=== PATIENT | female | born 1945 | race Caucasian/White ===

== ENCOUNTER 2017-09-27 10:00 | Inpatient (IN) ==
[2017-09-27] MEDS ORDERED: methylPREDNISolone 125 MG/2 ML VIAL IVP ONE (10:05)
[2017-09-27] MEDS ORDERED: Ipratropium/Albuterol Neb 3 ML IH ONE (10:05)
[2017-09-27] MEDS ORDERED: Azithromycin 500 MG in D5% in Water 250 ML IVPB ONE (10:05)
--- NOTE | 2017-09-27 10:07 | Emergency Department Note ---
Disposition Clinical Impression: Acute exacerbation of chronic obstructive airways disease Disposition: Admitted As Inpatient Condition: Fair SOB HPI - General Chief Complaint: ED Shortness of Breath/Dyspnea Stated Complaint: william/sick for 5 days/wheezing/NVD Time Seen by Provider: 09/27/17 10:03 Source: patient, family Mode of arrival: EMS Limitations: no limitations Nursing Notes Reviewed: Yes Vital Signs Reviewed: Yes - History of Present Illness Patient presents to the ED with the chief complaint of shortness of breath. Has been ongoing for the last 5 days but worse in the last 24 hours. Does have a history of COPD. No fever or chills. Some chest tightness but no chest pain. Has been coughing. No abdominal pain or vomiting. - Related Data Home Medications Medication Instructions Recorded Confirmed Fluticasone Propionate Nasal 2 spr NS DAILY 09/27/17 09/27/17 [Flonase] Levothyroxine [Synthroid] 100 mcg PO DAILY 09/27/17 09/27/17 Metformin HCl [Metformin HCl ER] 1,000 mg PO BID 09/27/17 09/27/17 Simvastatin [Zocor] 40 mg PO HS 09/27/17 09/27/17 Tramadol HCl [Ultram] 50 mg PO BID PRN 09/27/17 09/27/17 clonazePAM [Klonopin] 1 mg PO TID 09/27/17 09/27/17 glipiZIDE [Glucotrol] 5 mg PO DAILY 09/27/17 09/27/17 Allergies Allergy/AdvReac Type Severity Reaction Status Date / Time aspirin [ASA] Allergy Rash Verified 09/27/17 10:47 codeine Allergy Rash Verified 09/27/17 10:47 Review of Systems: As reviewed in the HPI. All other systems reviewed are negative or normal. Past Medical History - Past Medical History Attestation: Yes The following information was validated with the patient. Source: patient, old records reviewed, obtained from family Physical Exam - General Limitations: no limitations General appearance: alert, in distress - Head Head exam: atraumatic, normocephalic, normal inspection - Respiratory Respiratory exam: Present: respiratory distress, wheezes (Throughout), accessory muscle use. Absent: normal lung sounds bilaterally - Cardiovascular Cardiovascular exam: Present: regular rate, normal rhythm, normal heart sounds - Abdominal Exam Abdominal exam: Present: soft, Non-Tender. Absent: tenderness, distention, guarding, rebound, rigidity - Extremities Exam Extremities exam: Present: normal inspection, full ROM, normal capillary refill. Absent: tenderness, pedal edema - Neurological Exam Neurological exam: Present: alert, oriented X3 - Skin Skin exam: Present: warm, dry, intact, normal color Course Course Narrative: Patient presenting with respiratory distress, wheezing. Labs, meds and steroids ordered. No BiPAP at this time. We will reevaluate - Reevaluation(s) Reevaluation #1: Patient work of breathing has decreased after nebs and she is moving more air, but is still wheezing. Still do not think that she needs BiPAP at this time. Troponin is negative. She was quite hypoxic when she got here, so we will add on a d-dimer to rule out PE before admitting hospitalist service Reevaluation #2: Dimer is negative. Will admit. Vital Signs Temperature 98.3 F 09/27/17 10:04 Pulse Rate 74 09/27/17 10:04 Respiratory Rate 26 09/27/17 10:04 Blood Pressure 118/68 09/27/17 10:04 O2 Sat by Pulse Oximetry 81 09/27/17 10:04 Temperature 98.3 F 09/27/17 10:04 Pulse Rate 74 09/27/17 10:04 Respiratory Rate 20 09/27/17 10:15 Blood Pressure 118/68 09/27/17 10:04 O2 Sat by Pulse Oximetry 98 09/27/17 10:15 Oxygen Delivery Oxygen Delivery Room Air Shortness of Breath/Dyspnea - Lab Data Result diagrams: 09/27/17 10:05 09/27/17 10:05 Lab Results 09/27/17 09/27/17 09/27/17 Range/Units 10:05 10:05 10:05 WBC 3.6 L (4.3-11.1) K/mcL RBC 4.07 (3.82-4.97) M/mcL Hgb 12.0 (11.5-15.4) g/dL Hct 37.9 (35.3-44.9) % MCV 93.1 (83.0-100.0) fL MCH 29.5 (28.0-33.3) pg MCHC 31.7 (31.6-35.5) g/dL RDW 14.8 H (11.5-14.5) % Plt Count 103 L (140-400) K/mcL MPV 10.3 (9.4-12.4) fL Immature Gran % 1.9 (0-4) % Seg Neutrophils % 49.1 % Lymphocytes % 37.5 % Monocytes % 10.6 % Eosinophils % 0.6 % Basophils % 0.3 % Neutrophils # 1.8 (1.6-8.9) K/mcL Lymphocytes # 1.4 (0.6-4.6) K/mcL Monocytes # 0.4 (0.0-1.3) K/mcL Eosinophils # 0.0 (0.0-0.6) K/mcL Basophils # 0.0 (0.0-0.2) K/mcL Nucleated RBCs/100 WBC 0.8 H (0) /100 WBC Immature Plt Fraction 2.8 (1.1-6.1) % D-Dimer (0-500) ng/mLFEU Sodium 135 L (136-145) mEq/L Potassium 4.1 (3.5-5.1) mEq/L Chloride 98 (98-107) mEq/L Carbon Dioxide 29 (23-29) mEq/L BUN 19 (8-23) mg/dL Creatinine 1.13 (0.60-1.20) mg/dL Est GFR ( Amer) 57 L (> 60) Est GFR (Non-Af Amer) 47 L (> 60) BUN/Creatinine Ratio 17 (6-26) Glucose 142 H (70-105) mg/dL Calculated Osmolality 285 (280-300) Lactic Acid (0.5-2.2) mmol/L Calcium 8.7 (8.6-10.3) mg/dL Troponin I < 0.03 (< 0.04) ng/mL B-Natriuretic Peptide 100 H (Less than 100) pg/mL Urine Color (Yellow) Urine Clarity (Clear) Urine pH (5.0-8.0) pH Units Ur Specific [place] (1.010-1.025) Urine Protein (Neg-Trace) mg/dL Urine Glucose (UA) (Normal) mg/dL Urine Ketones (Negative) mg/dL Urine Blood (Negative) Urine Nitrite (Negative) Urine Bilirubin (Negative) Urine Urobilinogen (Normal) mg/dL Ur Leukocyte Esterase (Negative) Urine Microscopic RBC (0-3) per hpf Urine Microscopic WBC (0-3) per hpf Ur Squamous Epith Cells (None-Few) per lpf Urine Bacteria (None-Few) per hpf Granular Casts (None Seen) per lpf Ur Culture Indicated? (NO) 09/27/17 09/27/17 09/27/17 Range/Units 10:28 11:33 11:42 WBC (4.3-11.1) K/mcL RBC (3.82-4.97) M/mcL Hgb (11.5-15.4) g/dL Hct (35.3-44.9) % MCV (83.0-100.0) fL MCH (28.0-33.3) pg MCHC (31.6-35.5) g/dL RDW (11.5-14.5) % Plt Count (140-400) K/mcL MPV (9.4-12.4) fL Immature Gran % (0-4) % Seg Neutrophils % % Lymphocytes % % Monocytes % % Eosinophils % % Basophils % % Neutrophils # (1.6-8.9) K/mcL Lymphocytes # (0.6-4.6) K/mcL Monocytes # (0.0-1.3) K/mcL Eosinophils # (0.0-0.6) K/mcL Basophils # (0.0-0.2) K/mcL Nucleated RBCs/100 WBC (0) /100 WBC Immature Plt Fraction (1.1-6.1) % D-Dimer 421 (0-500) ng/mLFEU Sodium (136-145) mEq/L Potassium (3.5-5.1) mEq/L Chloride (98-107) mEq/L Carbon Dioxide (23-29) mEq/L BUN (8-23) mg/dL Creatinine (0.60-1.20) mg/dL Est GFR ( Amer) (> 60) Est GFR (Non-Af Amer) (> 60) BUN/Creatinine Ratio (6-26) Glucose (70-105) mg/dL Calculated Osmolality (280-300) Lactic Acid 0.8 (0.5-2.2) mmol/L Calcium (8.6-10.3) mg/dL Troponin I (< 0.04) ng/mL B-Natriuretic Peptide (Less than 100) pg/mL Urine Color Dark Yellow (Yellow) Urine Clarity Clear (Clear) Urine pH 5.5 (5.0-8.0) pH Units Ur Specific [place] 1.028 H (1.010-1.025) Urine Protein 100 H (Neg-Trace) mg/dL Urine Glucose (UA) Normal (Normal) mg/dL Urine Ketones Negative (Negative) mg/dL Urine Blood Negative (Negative) Urine Nitrite Negative (Negative) Urine Bilirubin Small H (Negative) Urine Urobilinogen Normal (Normal) mg/dL Ur Leukocyte Esterase Negative (Negative) Urine Microscopic RBC 0-3 (0-3) per hpf Urine Microscopic WBC 3-5 H (0-3) per hpf Ur Squamous Epith Cells Many H (None-Few) per lpf Urine Bacteria Few (None-Few) per hpf Granular Casts Few H (None Seen) per lpf Ur Culture Indicated? NO (NO) Critical Care Time Critical Care Time: Yes Total Critical Care Time: 30 Attestation: I personally spent ____30__ minutes devoted to the care of this critically ill patient. This time excludes the time for billable procedures.
[2017-09-27 10:49] LABS: Basophils % 0.3 %; Mean Corpuscular Hemoglobin 29.5 pg (28.0-33.3); Monocytes % 10.6 %
--- NOTE | 2017-09-27 10:49 | Emergency Department Note ---
Disposition Clinical Impression: Acute exacerbation of chronic obstructive airways disease Disposition: Admitted As Inpatient Condition: Fair General Adult HPI - General Chief complaint: ED Shortness of Breath/Dyspnea Stated complaint: william/sick for 5 days/wheezing/NVD Time Seen by Provider: 09/27/17 10:03 Nursing Notes Reviewed: Yes Vital Signs Reviewed: Yes - Related Data Home Medications Medication Instructions Recorded Confirmed Fluticasone Propionate Nasal 2 spr NS DAILY 09/27/17 09/27/17 [Flonase] Levothyroxine [Synthroid] 100 mcg PO DAILY 09/27/17 09/27/17 Metformin HCl [Metformin HCl ER] 1,000 mg PO BID 09/27/17 09/27/17 Simvastatin [Zocor] 40 mg PO HS 09/27/17 09/27/17 Tramadol HCl [Ultram] 50 mg PO BID PRN 09/27/17 09/27/17 clonazePAM [Klonopin] 1 mg PO TID 09/27/17 09/27/17 glipiZIDE [Glucotrol] 5 mg PO DAILY 09/27/17 09/27/17 Allergies Allergy/AdvReac Type Severity Reaction Status Date / Time aspirin [ASA] Allergy Rash Verified 09/27/17 10:47 codeine Allergy Rash Verified 09/27/17 10:47 Course Vital Signs Temperature 98.3 F 09/27/17 10:04 Pulse Rate 74 09/27/17 10:04 Respiratory Rate 26 09/27/17 10:04 Blood Pressure 118/68 09/27/17 10:04 O2 Sat by Pulse Oximetry 81 09/27/17 10:04 Temperature 98.3 F 09/27/17 10:04 Pulse Rate 74 09/27/17 12:41 Respiratory Rate 18 09/27/17 12:41 Blood Pressure 124/57 09/27/17 12:41 O2 Sat by Pulse Oximetry 97 09/27/17 12:41 Oxygen Delivery Oxygen Delivery Nasal Cannula Medical Decision Making - MDM Narrative Medical decision making narrative: This documentation is done with the assistance of Dragon dictation. Despite efforts made to ensure accuracy, there may be inaccuracies in floor scraper or spelling and typographical errors. Patient presents today with cough and wheezing history of COPD. Possible pneumonia. We will do a workup, nebulize treatments. Chest x-ray EKG most likely will be admitted. She and family are in agreement with plan. Chest X-Ray 09/27/17 10:05 IMPRESSION: No acute cardiopulmonary process. D/ / Aden Dash MD / Aden Dash MD Interpreting Provider: Aden Dash MD 1130 hrs. with her COPD. We will start her on antibiotics and admit her. She still has some wheezing but is doing better. Patient's critical care time exclusive any separately billable procedures is 30 minutes. - Lab Data Result diagrams: 09/27/17 10:05 09/27/17 10:05 Lab Results 09/27/17 09/27/17 09/27/17 Range/Units 10:05 10:05 10:05 WBC 3.6 L (4.3-11.1) K/mcL RBC 4.07 (3.82-4.97) M/mcL Hgb 12.0 (11.5-15.4) g/dL Hct 37.9 (35.3-44.9) % MCV 93.1 (83.0-100.0) fL MCH 29.5 (28.0-33.3) pg MCHC 31.7 (31.6-35.5) g/dL RDW 14.8 H (11.5-14.5) % Plt Count 103 L (140-400) K/mcL MPV 10.3 (9.4-12.4) fL Immature Gran % 1.9 (0-4) % Seg Neutrophils % 49.1 % Lymphocytes % 37.5 % Monocytes % 10.6 % Eosinophils % 0.6 % Basophils % 0.3 % Neutrophils # 1.8 (1.6-8.9) K/mcL Lymphocytes # 1.4 (0.6-4.6) K/mcL Monocytes # 0.4 (0.0-1.3) K/mcL Eosinophils # 0.0 (0.0-0.6) K/mcL Basophils # 0.0 (0.0-0.2) K/mcL Nucleated RBCs/100 WBC 0.8 H (0) /100 WBC Immature Plt Fraction 2.8 (1.1-6.1) % D-Dimer (0-500) ng/mLFEU Sodium 135 L (136-145) mEq/L Potassium 4.1 (3.5-5.1) mEq/L Chloride 98 (98-107) mEq/L Carbon Dioxide 29 (23-29) mEq/L BUN 19 (8-23) mg/dL Creatinine 1.13 (0.60-1.20) mg/dL Est GFR ( Amer) 57 L (> 60) Est GFR (Non-Af Amer) 47 L (> 60) BUN/Creatinine Ratio 17 (6-26) Glucose 142 H (70-105) mg/dL Calculated Osmolality 285 (280-300) Lactic Acid (0.5-2.2) mmol/L Calcium 8.7 (8.6-10.3) mg/dL Troponin I < 0.03 (< 0.04) ng/mL B-Natriuretic Peptide 100 H (Less than 100) pg/mL Urine Color (Yellow) Urine Clarity (Clear) Urine pH (5.0-8.0) pH Units Ur Specific [place] (1.010-1.025) Urine Protein (Neg-Trace) mg/dL Urine Glucose (UA) (Normal) mg/dL Urine Ketones (Negative) mg/dL Urine Blood (Negative) Urine Nitrite (Negative) Urine Bilirubin (Negative) Urine Urobilinogen (Normal) mg/dL Ur Leukocyte Esterase (Negative) Urine Microscopic RBC (0-3) per hpf Urine Microscopic WBC (0-3) per hpf Ur Squamous Epith Cells (None-Few) per lpf Urine Bacteria (None-Few) per hpf Granular Casts (None Seen) per lpf Ur Culture Indicated? (NO) 09/27/17 09/27/17 09/27/17 Range/Units 10:28 11:33 11:42 WBC (4.3-11.1) K/mcL RBC (3.82-4.97) M/mcL Hgb (11.5-15.4) g/dL Hct (35.3-44.9) % MCV (83.0-100.0) fL MCH (28.0-33.3) pg MCHC (31.6-35.5) g/dL RDW (11.5-14.5) % Plt Count (140-400) K/mcL MPV (9.4-12.4) fL Immature Gran % (0-4) % Seg Neutrophils % % Lymphocytes % % Monocytes % % Eosinophils % % Basophils % % Neutrophils # (1.6-8.9) K/mcL Lymphocytes # (0.6-4.6) K/mcL Monocytes # (0.0-1.3) K/mcL Eosinophils # (0.0-0.6) K/mcL Basophils # (0.0-0.2) K/mcL Nucleated RBCs/100 WBC (0) /100 WBC Immature Plt Fraction (1.1-6.1) % D-Dimer 421 (0-500) ng/mLFEU Sodium (136-145) mEq/L Potassium (3.5-5.1) mEq/L Chloride (98-107) mEq/L Carbon Dioxide (23-29) mEq/L BUN (8-23) mg/dL Creatinine (0.60-1.20) mg/dL Est GFR ( Amer) (> 60) Est GFR (Non-Af Amer) (> 60) BUN/Creatinine Ratio (6-26) Glucose (70-105) mg/dL Calculated Osmolality (280-300) Lactic Acid 0.8 (0.5-2.2) mmol/L Calcium (8.6-10.3) mg/dL Troponin I (< 0.04) ng/mL B-Natriuretic Peptide (Less than 100) pg/mL Urine Color Dark Yellow (Yellow) Urine Clarity Clear (Clear) Urine pH 5.5 (5.0-8.0) pH Units Ur Specific [place] 1.028 H (1.010-1.025) Urine Protein 100 H (Neg-Trace) mg/dL Urine Glucose (UA) Normal (Normal) mg/dL Urine Ketones Negative (Negative) mg/dL Urine Blood Negative (Negative) Urine Nitrite Negative (Negative) Urine Bilirubin Small H (Negative) Urine Urobilinogen Normal (Normal) mg/dL Ur Leukocyte Esterase Negative (Negative) Urine Microscopic RBC 0-3 (0-3) per hpf Urine Microscopic WBC 3-5 H (0-3) per hpf Ur Squamous Epith Cells Many H (None-Few) per lpf Urine Bacteria Few (None-Few) per hpf Granular Casts Few H (None Seen) per lpf Ur Culture Indicated? NO (NO) Critical Care Time Critical Care Time: Yes Total Critical Care Time: 30 Attestation: Excluding any separately billable procedures Attestation Statement - Attestation Attestation: I examined this patient and my medical decision-making was reviewed with the Resident Physician. I agree with the documented findings, disposition and treatment plan as described except to the extent set forth below. Patient was seen on arrival by Dr. High and myself, I agree with his evaluation management plan supervisor telephone clerks care the patient's stay.
[2017-09-27 10:50] LABS: Eosinophils % 0.6 %; Hematocrit 37.9 % (35.3-44.9); Immature Granulocytes % 1.9 % (0-4); Immature Platelets 2.8 % (1.1-6.1); Lymphocytes # 1.4 K/mcL (0.6-4.6); Lymphocytes % 37.5 %; Mean Corpuscular HGB Conc 31.7 g/dL (31.6-35.5); Mean Corpuscular Volume 93.1 fL (83.0-100.0); Mean Platelet Volume 10.3 fL (9.4-12.4); Monocytes # 0.4 K/mcL (0.0-1.3); Neutrophils # 1.8 K/mcL (1.6-8.9); Nucleated Red Blood Cells 0.8 /100 WBC (0); Platelet Count 103 K/mcL (140-400); Red Blood Count 4.07 M/mcL (3.82-4.97); Red Cell Distribution Width 14.8 % (11.5-14.5); Segmented Neutrophils % 49.1 %
[2017-09-27 11:01] LABS: BUN/Creatinine Ratio 17 (6-26); Blood Urea Nitrogen 19 mg/dL (8-23); Calcium 8.7 mg/dL (8.6-10.3); Carbon Dioxide 29 mEq/L (23-29); Chloride 98 mEq/L (98-107); Glucose 142 mg/dL (70-105); Osmolality,Calculated 285 (280-300); Potassium 4.1 mEq/L (3.5-5.1); Sodium 135 mEq/L (136-145); eGFR For African Americans 57 (> 60); eGFR For Non-African Americans 47 (> 60)
[2017-09-27 11:02] LABS: Troponin I < 0.03 ng/mL (< 0.04)
[2017-09-27 11:51] LABS: Bilirubin,Urine Small (Negative); Blood,Urine Negative (Negative); Color,Urine Dark Yellow (Yellow); Glucose,Urine (UA) Normal (Normal); Ketones,Urine Negative (Negative); Leukocyte Esterase,Urine Negative (Negative); Nitrite,Urine Negative (Negative); PH,Urine 5.5 pH Units (5.0-8.0); Protein,Urine 100 mg/dL (Neg-Trace); Specific Gravity,Urine 1.028 (1.010-1.025); Urobilinogen,Urine Normal (Normal)
[2017-09-27 11:54] LABS: Squamous Epithelial Cell,Urine Many per lpf (None-Few)
[2017-09-27 12:02] LABS: Clarity,Urine Clear (Clear)
[2017-09-27 12:19] LABS: Granular Casts,Urine Few per lpf (None Seen)
[2017-09-27 12:20] LABS: Bacteria,Urine Few per hpf (None-Few); RBC,Urine 0-3 per hpf (0-3)
--- NOTE | 2017-09-27 14:02 | Internal Med History&Physical ---
Date of Encounter: 09/27/17 Time of Encounter: 14:48 Internal Medicine - H&P: HPI Admitted From: Home Plans for Post Hospital Care: Home History of present illness: Ms. 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 Patient also had episode of nausea vomiting diarrhea but now slowing down significantly. In ER patient was saturating 81% with wheezing therefore oxygen supplementation by nasal cannula is started along with Solu-Medrol and azithromycin considering COPD exacerbation. Chest x-ray with no suggestive findings of pneumonia. Initial lab with low white count, low platelet raised blood glucose level and raised BNP. Patient never had history of CHF or any cardiac problem. Patient denies chest pain abdominal pain, urinary complaint, headache, dizziness. History of remote a smoker. Past Med Surg Social Fam HX - Past Medical History Medical history: COPD, diabetes, hypertension, renal disease Psychiatric history: no psych history - Social History Smoking Status: Former smoker Smokeless Tobacco Status: No Alcohol use: none Drug use: none - Family History Mother History Unknown: Yes Internal Medicine - H&P: Meds Fluticasone Propionate Nasal [Flonase] 2 spr NS DAILY 09/27/17 [History] Levothyroxine [Synthroid] 100 mcg PO DAILY 09/27/17 [History] Metformin HCl [Metformin HCl ER] 1,000 mg PO BID 09/27/17 [History] Simvastatin [Zocor] 40 mg PO HS 09/27/17 [History] Tramadol HCl [Ultram] 50 mg PO BID PRN 09/27/17 [History] clonazePAM [Klonopin] 1 mg PO TID 09/27/17 [History] glipiZIDE [Glucotrol] 5 mg PO DAILY 09/27/17 [History] 3 Allergy/AdvReac Type Severity Reaction Status Date / Time aspirin [ASA] Allergy Rash Verified 09/27/17 10:47 codeine Allergy Rash Verified 09/27/17 10:47 All Systems PM: A 10-system review of systems was performed and is negative for pertinent findings except as documented above in the HPI. - Constitutional Vitals: Temp Pulse Resp BP Pulse Ox 98.7 F 93 18 114/57 93 09/27/17 13:23 09/27/17 13:23 09/27/17 13:23 09/27/17 13:23 09/27/17 13:23 Exam: General appearance: Mild respiratory distress, oxygen by nasal cannula 3 L, get out of breath while talking but able to complete a sentence. A&O X 3 Head exam: Atraumatic Eye exam: EOMI, PERRLA ENT exam: Moist oral mucosa Neck nontender, supple Respiratory exam: Decreased breath sounds with expiratory wheezing bilaterally Cardiovascular exam: Regular rate and rhythm, no systolic murmur Abdominal exam: Soft, nontender, nondistended, positive bowel sounds Extremities exam: No calf tenderness, no pedal edema Present: Skin-no rash, warm, dry, intact Neurological exam: Alert, awake, oriented 3, CN II-XII intact, no focal deficits. No facial droop. Normal speech. Normal gait. Romberg sign negative Internal Med - H&P Results - Labs CBC & Chem 7: 09/27/17 10:05 09/27/17 10:05 - Assessment and plan (1) COPD exacerbation Current Visit: Yes Status: Acute Assessment and plan: With acute bronchitis but no pneumonia on chest x-ray. Patient has history of pneumonia in the past. Patient was also hypoxic with greenish sputum. Solu- Medrol loading dose given now will continue 40 mg IV every 6 hours along with dual antibiotic Rocephin and Zithromax, spirometry, breathing treatment and oxygen supplementation. Patient does not look septic but SIRS. (2) Hypoxia Current Visit: Yes Status: Acute Assessment and plan: Most likely due to acute event as mentioned above. ABG ordered. Oxygen supplementation. Patient may need oxygen evaluation before discharge to home. Continuous pulse ox. (3) Short of breath on exertion Current Visit: Yes Status: Acute Assessment and plan: Most likely due to COPD exacerbation but patient also had elevated BNP but does not appear volume overloaded and never had any cardiac evaluation therefore echocardiogram ordered. Lasix 20 mg 1 given with a strict I&O's. (4) Diabetes mellitus Current Visit: Yes Status: Chronic Assessment and plan: No OHA. Accu-Chek, sliding scale insulin, diabetic diet. Qualifiers: Diabetes mellitus type: type 2 Diabetes mellitus director long term care insulin use: without half-way use Diabetes mellitus complication status: without complication Qualified Code(s): E11.9 - Type 2 diabetes mellitus without complications (5) DVT prophylaxis Current Visit: Yes Status: Acute - Time Spent With Patient Total time spent is greater than 50% in coordination of care (as documented) at patient's floor/unit and/or counseling patient:
[2017-09-27] MEDS ORDERED: Naloxone 0.4 MG/ML INJ IVP PRN (14:46)
[2017-09-27] MEDS ORDERED: traMADol 50 MG TABLET PO PRN (14:53)
[2017-09-27] MEDS ORDERED: *HR* Dextrose 50 % in Water (Syg) 50 ML SYRINGE IVP PRN (14:54)
[2017-09-27] MEDS ORDERED: D5% in Water 1,000 ML IVC PRN (14:54)
[2017-09-27] MEDS ORDERED: Dextrose Gel 15 GM/37.5 ML TUBE PO PRN ×2 (14:54)
[2017-09-27 15:53] LABS: Estimated Average Glucose 117 mg/dl; Hemoglobin A1C 5.7 %
[2017-09-27] MEDS: Ipratropium/Albuterol Neb 3 ML IH SCH ×2 (16:07→22:51)
[2017-09-27 16:20] LABS: ABG Base Excess 1 mEq/L (-2 to 3); ABG HCO3 27 mEq/L (21-27); ABG Oxygen Saturation 95 % (95-98); ABG PCO2 49 mmHg (35-45); ABG PH 7.35 pH Units (7.32-7.45); ABG PO2 81 mmHg (85-104); ABG TCO2 29 mEq/L (20-26)
[2017-09-27] MEDS: MethylPREDNISolone 40 MG/ML VIAL IVP SCH (16:32)
[2017-09-27] MEDS: clonazePAM 1 MG TABLET PO SCH ×2 (16:33→21:05)
[2017-09-27] MEDS: Insulin LISPRO 300 UNITS/3 ML VIAL SQ SCH (16:48)
--- NOTE | 2017-09-27 17:05 | Electrocardiograph Report ---
[place] [id number] Test Date: 2017-09-27 Pat Name: Margarette Mckeon Department: 103 Room: 2A14 Gender: F Engineering Technician Parking: : 1945 Requested By: [id number] Order Number: [id number] Reading MD: Ewelina Chu Measurements Intervals [place] Rate: 80 P: 60 MA: 209 QRS: 57 QRSD: 81 T: 72 QT: 359 QTc: 396 Interpretive Statements SINUS RHYTHM ANTEROSEPTAL MYOCARDIAL INFARCTION [40+ ms Q WAVE IN V1-V4], OF INDETERMINATE AGE ARTIFACT Electronically Signed On 09-27-2017 17:04:20 EDT by Ewelina Chu
[2017-09-28] MEDS: MethylPREDNISolone 40 MG/ML VIAL IVP SCH ×5 (00:40→23:22)
[2017-09-28] MEDS: Insulin LISPRO 300 UNITS/3 ML VIAL SQ SCH ×7 (00:40→21:14)
[2017-09-28] MEDS: Ipratropium/Albuterol Neb 3 ML IH SCH ×4 (03:54→22:09)
[2017-09-28 05:05] LABS: Basophils % 0.4 %; Hemoglobin 11.8 g/dL (11.5-15.4); Immature Granulocytes % 1.8 % (0-4); Lymphocytes # 0.8 K/mcL (0.6-4.6); Lymphocytes % 26.8 %; Mean Corpuscular HGB Conc 32.8 g/dL (31.6-35.5); Mean Corpuscular Hemoglobin 30.2 pg (28.0-33.3); Mean Corpuscular Volume 92.1 fL (83.0-100.0); Monocytes # 0.1 K/mcL (0.0-1.3); Monocytes % 3.9 %; Neutrophils # 1.9 K/mcL (1.6-8.9); Nucleated Red Blood Cells 0.7 /100 WBC (0); Platelet Count 101 K/mcL (140-400); Red Blood Count 3.91 M/mcL (3.82-4.97); Red Cell Distribution Width 14.3 % (11.5-14.5); Segmented Neutrophils % 67.1 %
[2017-09-28 05:33] LABS: Calcium 8.5 mg/dL (8.6-10.3); Potassium 4.3 mEq/L (3.5-5.1)
[2017-09-28] MEDS: clonazePAM 1 MG TABLET PO SCH ×3 (08:15→21:14)
[2017-09-28] MEDS: Azithromycin 500 MG in D5% in Water 250 ML IVPB SCH (08:16)
[2017-09-28] MEDS ORDERED: cefTRIAXone 1,000 MG in Water for inj. (sterile) 20 ML 10 ML IVP SCH (09:00)
[2017-09-28] MEDS ORDERED: Insulin LISPRO 300 UNITS/3 ML VIAL SQ SCH (21:00)
--- NOTE | 2017-09-28 21:14 | Internal Med Progress Note ---
Date of Encounter: 09/28/17 Time of Encounter: 15:07 - Assessment and plan (1) COPD exacerbation Current Visit: Yes Status: Acute Assessment and plan: Much improved. No pneumonia on chest x-ray. Continue supplemental O2 PRN; wean as tolerated. Continue nebulizer treatments. Continue solumedrol 40 mg IV Q6H; wean tomorrow with continued improvement. Discontinue rocephin as low suspicion for pneumonia. Continue azithromycin for COPD exacerbation. (2) Hypoxia Current Visit: Yes Status: Acute Assessment and plan: Improved. Continue oxygen supplementation PRN; wean as tolerated. Patient may need oxygen evaluation before discharge to home. Continue continuous pulse ox. (3) Diabetes mellitus Current Visit: Yes Status: Chronic Assessment and plan: Continue accuchecks and SSI QID AC/HS. Qualifiers: Diabetes mellitus type: type 2 Diabetes mellitus intermediate insulin use: without terminal supervisor use Diabetes mellitus complication status: without complication Qualified Code(s): E11.9 - Type 2 diabetes mellitus without complications (4) DVT prophylaxis Current Visit: Yes Status: Acute Assessment and plan: Start lovenox 40 mg SQ QD. - Time Spent With Patient Total time spent is greater than 50% in coordination of care (as documented) at patient's floor/unit and/or counseling patient: less than 15 minutes - Subjective Interval history: Patient had no acute events overnight. She states that her breathing is "much better than yesterday." She states that he is about 70% back to her baseline respiratory status. She denies fever, chills, chest pain, nausea, or vomiting. She has no other complaints. - Constitutional Vitals: Temp Pulse Resp BP Pulse Ox 97.7 F 58 18 117/69 96 09/28/17 19:20 09/28/17 19:20 09/28/17 19:20 09/28/17 19:20 09/28/17 19:20 General appearance: Present: cooperative, A&O X 3, pleasant, no acute distress, answers questions appropriately - Respiratory Respiratory exam: Absent: accessory muscle use, rales, rhonchi, wheezes Additional comments: Normal WOB, coarse breath sounds bilaterally - Cardiovascular Cardiovascular exam: Present: RRR, +S1, +S2. Absent: diastolic murmur, gallop, rubs, systolic murmur Additional comments: No BLE edema - GI/Abdominal GI/Abdominal exam: Present: normal bowel sounds, soft. Absent: distended, hepatomegaly, mass, splenomegaly, tenderness - Psychiatric Psychiatric exam: Present: normal affect, normal mood. Absent: agitated, anxious, depressed - Skin Skin exam: Present: dry, intact, warm. Absent: cyanosis, rash Internal Medicine: Result - Labs CBC & Chem 7: 09/28/17 04:12 09/28/17 04:12 Labs: Short CBC 09/28/17 Range/Units 04:12 WBC 2.8 L (4.3-11.1) K/mcL Hgb 11.8 (11.5-15.4) g/dL Hct 36.0 (35.3-44.9) % Plt Count 101 L (140-400) K/mcL Neutrophils # 1.9 (1.6-8.9) K/mcL BMP 09/28/17 04:12 Sodium 133 L Potassium 4.3 Chloride 96 L Carbon Dioxide 26 BUN 28 H Creatinine 1.14 Glucose 288 H Calcium 8.5 L Cardiac Enzymes 09/27/17 Range/Units 20:54 Troponin I < 0.03 (< 0.04) ng/mL - ABG Interpretation ABG results: ABG ABG pH 7.35 pH Units (7.32-7.45) 09/27/17 16:16 ABG pCO2 49 mmHg (35-45) H 09/27/17 16:16 ABG pO2 81 mmHg (85-104) L 09/27/17 16:16 ABG O2 Saturation 95 % (95-98) 09/27/17 16:16 PT/INR, D-dimer D-Dimer 421 ng/mLFEU (0-500) 09/27/17 11:42 - Impressions Impressions Echocardiogram 09/27/17 14:55 Impressions: LVEF 60-65%. Normal LV chamber size, wall thickness and function. Pseudonormal left ventricular diastolic dysfunction. Normal right ventricular structure and function. Mild aortic stenosis. Mean gradient 14 mmHg. No evidence of pulmonary hypertension. Left Ventricular Wall Motion: Rest Echo Findings All wall segments showed normal motion. Findings: Study Quality * Technically adequate exam. ECG Findings * Normal sinus rhythm. Left Ventricle * LVEF 60-65%. * Normal LV chamber size, wall thickness and function. * Pseudonormal left ventricular diastolic dysfunction. Right Ventricle * Normal right ventricular structure and function. Left Atrium * Mildly dilated left atrium. Right Atrium * Mildly dilated right atrium. Interatrial Septum * Interatrial septum not well evaluated. Aortic Valve * Aortic valve not well visualized. * Mildly calcified aortic valve leaflets. * Mild aortic stenosis. Mean gradient 14 mmHg. * No aortic regurgitation. Mitral Valve * Normal mitral valve structure and function. * Trace mitral regurgitation. * No mitral stenosis. Tricuspid Valve * Normal tricuspid valve structure and function. * Trace tricuspid regurgitation. * No evidence of pulmonary hypertension. Pulmonic Valve * Normal pulmonic valve structure and function. * No pulmonic regurgitation. Aorta * Normally sized aortic root. Pericardium * There is a trivial pericardial effusion present. IVC * Normal IVC dimensions and inspiratory collapse. Pulmonary Artery * Normal visualized portions of the main pulmonary artery. Consult Discharge Plan - Plan Referrals: Guero Fulton MD [Primary Care Provider] -
[2017-09-28] MEDS: Fluticasone Propionate Nasal 50 MCG/SPRAY BOTTLE NS SCH (21:16)
[2017-09-29] MEDS: Ipratropium/Albuterol Neb 3 ML IH SCH ×4 (04:35→22:01)
[2017-09-29] MEDS: *HR* Enoxaparin 40 MG/0.4 ML SYRINGE SQ SCH (05:32)
[2017-09-29] MEDS: MethylPREDNISolone 40 MG/ML VIAL IVP SCH ×3 (05:33→17:14)
[2017-09-29 05:49] LABS: Basophils % 0.2 %; Hematocrit 34.8 % (35.3-44.9); Hemoglobin 11.3 g/dL (11.5-15.4); Immature Granulocytes % 1.4 % (0-4); Lymphocytes % 18.3 %; Mean Corpuscular HGB Conc 32.5 g/dL (31.6-35.5); Mean Corpuscular Hemoglobin 29.6 pg (28.0-33.3); Mean Corpuscular Volume 91.1 fL (83.0-100.0); Mean Platelet Volume 10.5 fL (9.4-12.4); Monocytes # 0.2 K/mcL (0.0-1.3); Monocytes % 4.4 %; Neutrophils # 3.9 K/mcL (1.6-8.9); Platelet Count 126 K/mcL (140-400); Red Blood Count 3.82 M/mcL (3.82-4.97); Red Cell Distribution Width 14.2 % (11.5-14.5); Segmented Neutrophils % 75.7 %
[2017-09-29 06:10] LABS: Calcium 8.8 mg/dL (8.6-10.3); Potassium 4.6 mEq/L (3.5-5.1)
[2017-09-29 07:05] LABS: Platelet Estimate Decreased (Normal)
[2017-09-29] MEDS: Azithromycin 500 MG in D5% in Water 250 ML IVPB SCH (08:11)
[2017-09-29] MEDS: clonazePAM 1 MG TABLET PO SCH ×3 (08:13→21:19)
[2017-09-29] MEDS: Insulin LISPRO 300 UNITS/3 ML VIAL SQ SCH ×4 (08:13→21:19)
[2017-09-29] MEDS: Acetylcysteine 10% 2 ML INHSOL IH SCH ×3 (11:14→21:59)
[2017-09-29] MEDS: Fluticasone Propionate Nasal 50 MCG/SPRAY BOTTLE NS SCH (12:48)
[2017-09-29] MEDS: Loratadine 10 MG TABLET PO SCH (13:10)
[2017-09-29] MEDS ORDERED: Insulin DETEMIR 100 UNIT/ML X5UNITS SQ STA (19:26)
--- NOTE | 2017-09-29 19:34 | Internal Med Progress Note ---
Date of Encounter: 09/29/17 Time of Encounter: 12:37 - Assessment and plan (1) COPD exacerbation Current Visit: Yes Status: Acute Assessment and plan: Continues to improve, but only 70% back to baseline. No pneumonia on chest x- ray. Continue supplemental O2 PRN; wean as tolerated. Continue nebulizer treatments. Decrease solumedrol to 40 mg IV Q12H; consider discharge home tomorrow with prednisone taper if improved to 80-90% back to baseline. Continue azithromycin. (2) Hypoxia Current Visit: Yes Status: Acute Assessment and plan: Acute respiratory failure. Continue oxygen supplementation PRN; wean as tolerated. Patient may need oxygen evaluation before discharge to home. Continue continuous pulse ox. (3) Diabetes mellitus Current Visit: Yes Status: Chronic Assessment and plan: Continue accuchecks and SSI QID AC/HS. Added levemir 10 units QHS. 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 - Time Spent With Patient Total time spent is greater than 50% in coordination of care (as documented) at patient's floor/unit and/or counseling patient: less than 15 minutes - Subjective Interval history: Patient had no acute events overnight. She states breathing continues to improve; still about 70% back to her baseline respiratory status. She denies fever, chills, chest pain, nausea, or vomiting. She has no other complaints. - Constitutional Vitals: Temp Pulse Resp BP Pulse Ox 97.7 F 68 16 145/59 98 09/29/17 15:53 09/29/17 15:53 09/29/17 15:53 09/29/17 15:53 09/29/17 15:53 General appearance: Present: cooperative, A&O X 3, pleasant, no acute distress, answers questions appropriately - Respiratory Respiratory exam: Absent: accessory muscle use, rales, rhonchi, wheezes Additional comments: Mildly labored WOB, coarse breath sounds bilaterally - Cardiovascular Cardiovascular exam: Present: RRR, +S1, +S2. Absent: diastolic murmur, gallop, rubs, systolic murmur Additional comments: No BLE edema - GI/Abdominal GI/Abdominal exam: Present: normal bowel sounds, soft. Absent: distended, hepatomegaly, mass, splenomegaly, tenderness - Psychiatric Psychiatric exam: Present: normal affect, normal mood. Absent: agitated, anxious, depressed - Skin Skin exam: Present: dry, intact, warm. Absent: cyanosis, rash Internal Medicine: Result - Labs CBC & Chem 7: 09/29/17 05:29 09/29/17 05:29 Labs: Short CBC 09/29/17 Range/Units 05:29 WBC 5.2 D (4.3-11.1) K/mcL Hgb 11.3 L (11.5-15.4) g/dL Hct 34.8 L (35.3-44.9) % Plt Count 126 L (140-400) K/mcL Neutrophils # 3.9 (1.6-8.9) K/mcL BMP 09/29/17 05:29 Sodium 130 L Potassium 4.6 Chloride 96 L Carbon Dioxide 28 BUN 38 H Creatinine 1.11 Glucose 323 H Calcium 8.8 - ABG Interpretation ABG results: ABG ABG pH 7.35 pH Units (7.32-7.45) 09/27/17 16:16 ABG pCO2 49 mmHg (35-45) H 09/27/17 16:16 ABG pO2 81 mmHg (85-104) L 09/27/17 16:16 ABG O2 Saturation 95 % (95-98) 09/27/17 16:16 PT/INR, D-dimer D-Dimer 421 ng/mLFEU (0-500) 09/27/17 11:42 Consult Discharge Plan - Plan Referrals: Guero Fulton MD [Primary Care Provider] - 10/11/17 9:45 am
[2017-09-30] MEDS: Acetylcysteine 10% 2 ML INHSOL IH SCH ×4 (03:59→22:15)
[2017-09-30] MEDS: Ipratropium/Albuterol Neb 3 ML IH SCH ×4 (04:00→22:15)
[2017-09-30] MEDS: *HR* Enoxaparin 40 MG/0.4 ML SYRINGE SQ SCH (04:34)
[2017-09-30] MEDS: MethylPREDNISolone 40 MG/ML VIAL IVP SCH ×2 (04:35→15:50)
[2017-09-30 05:45] LABS: Calcium 9.2 mg/dL (8.6-10.3); Potassium 4.8 mEq/L (3.5-5.1)
[2017-09-30] MEDS: Azithromycin 250 MG TABLET PO SCH (09:25)
[2017-09-30] MEDS: Loratadine 10 MG TABLET PO SCH (09:25)
[2017-09-30] MEDS: Fluticasone Propionate Nasal 50 MCG/SPRAY BOTTLE NS SCH (09:25)
[2017-09-30] MEDS: clonazePAM 1 MG TABLET PO SCH ×3 (09:25→21:38)
[2017-09-30] MEDS: Insulin LISPRO 300 UNITS/3 ML VIAL SQ SCH ×4 (09:26→21:38)
[2017-09-30] MEDS ORDERED: 0.9 % Sodium Chloride 1,000 ML IVC ONE ×2 (11:03→15:23)
[2017-09-30 14:57] LABS: Calcium 8.4 mg/dL (8.6-10.3); Potassium 4.8 mEq/L (3.5-5.1)
[2017-09-30] MEDS ORDERED: 0.9 % Sodium Chloride 1,000 ML IVC SCH (15:30)
[2017-09-30] MEDS ORDERED: Insulin DETEMIR 100 UNIT/ML X5UNITS SQ SCH (21:00)
--- NOTE | 2017-09-30 22:16 | Internal Med Progress Note ---
Date of Encounter: 09/30/17 Time of Encounter: 11:07 - Assessment and plan (1) COPD exacerbation Current Visit: Yes Status: Acute Assessment and plan: Continues to improve, now 80% back to baseline. No pneumonia on chest x-ray. Continue supplemental O2 PRN; wean as tolerated. Continue nebulizer treatments. Continue solumedrol 40 mg IV Q12H; consider discharge home tomorrow with prednisone taper tomorrow if renal function improves. Continue azithromycin. (2) Hypoxia Current Visit: Yes Status: Acute Assessment and plan: Acute respiratory failure. Continue oxygen supplementation PRN; wean as tolerated. Patient will need oxygen evaluation before discharge to home. Continue continuous pulse ox. (3) Acute kidney injury Current Visit: Yes Status: Acute Assessment and plan: Cr up today. Will give IVF and recheck BMP in AM. Plan to discharge home tomorrow if Cr trends down. Patient counselled on drinking enough PO liquids. (4) Hyponatremia Current Visit: Yes Status: Acute Assessment and plan: Mildly decreased Na this AM. IVF as per above. Recheck BMP in AM. (5) Diabetes mellitus Current Visit: Yes Status: Chronic Assessment and plan: Continue accuchecks and SSI QID AC/HS. Continue levemir 10 units QHS. Blood glucoses running high, but this will improve with taper of steroids. Qualifiers: Diabetes mellitus type: type 2 Diabetes mellitus skilled nursing insulin use: without ceo na use Diabetes mellitus complication status: without complication Qualified Code(s): E11.9 - Type 2 diabetes mellitus without complications (6) DVT prophylaxis Current Visit: Yes Status: Acute Assessment and plan: Continue lovenox 40 mg SQ QD. - Time Spent With Patient Total time spent is greater than 50% in coordination of care (as documented) at patient's floor/unit and/or counseling patient: less than 15 minutes - Subjective Interval history: Patient had no acute events overnight. She states breathing is better, now about 80% back to her baseline respiratory status. She denies fever, chills, chest pain, nausea, or vomiting. She has no other complaints. - Constitutional Vitals: Temp Pulse Resp BP Pulse Ox 97.2 F L 61 17 115/67 98 09/30/17 20:11 09/30/17 20:11 09/30/17 20:11 09/30/17 20:11 09/30/17 20:11 General appearance: Present: cooperative, A&O X 3, pleasant, no acute distress, answers questions appropriately - Respiratory Respiratory exam: Present: CTAB. Absent: accessory muscle use, rales, rhonchi, wheezes Additional comments: Mildly labored WOB - Cardiovascular Cardiovascular exam: Present: RRR, +S1, +S2. Absent: diastolic murmur, gallop, rubs, systolic murmur Additional comments: No BLE edema - GI/Abdominal GI/Abdominal exam: Present: normal bowel sounds, soft. Absent: distended, hepatomegaly, mass, splenomegaly, tenderness - Psychiatric Psychiatric exam: Present: normal affect, normal mood. Absent: agitated, anxious, depressed - Skin Skin exam: Present: dry, intact, warm. Absent: cyanosis, rash Internal Medicine: Result - Labs CBC & Chem 7: 09/29/17 05:29 09/30/17 14:21 Labs: BMP 09/30/17 09/30/17 04:34 14:21 Sodium 135 L 133 L Potassium 4.8 4.8 Chloride 98 100 Carbon Dioxide 30 H 28 BUN 43 H 44 H Creatinine 1.24 H 1.28 H Glucose 236 H 298 H Calcium 9.2 8.4 L - ABG Interpretation ABG results: ABG ABG pH 7.35 pH Units (7.32-7.45) 09/27/17 16:16 ABG pCO2 49 mmHg (35-45) H 09/27/17 16:16 ABG pO2 81 mmHg (85-104) L 09/27/17 16:16 ABG O2 Saturation 95 % (95-98) 09/27/17 16:16 PT/INR, D-dimer D-Dimer 421 ng/mLFEU (0-500) 09/27/17 11:42 Consult Discharge Plan - Plan Referrals: Guero Fulton MD [Primary Care Provider] - 10/11/17 9:45 am
[2017-10-01] MEDS: Acetylcysteine 10% 2 ML INHSOL IH SCH ×3 (04:07→15:41)
[2017-10-01] MEDS: Ipratropium/Albuterol Neb 3 ML IH SCH ×3 (04:07→15:41)
[2017-10-01] MEDS: *HR* Enoxaparin 40 MG/0.4 ML SYRINGE SQ SCH (06:19)
[2017-10-01] MEDS: MethylPREDNISolone 40 MG/ML VIAL IVP SCH (06:19)
[2017-10-01 06:20] LABS: Calcium 8.4 mg/dL (8.6-10.3); Potassium 4.9 mEq/L (3.5-5.1)
[2017-10-01] MEDS: clonazePAM 1 MG TABLET PO SCH (07:19)
[2017-10-01] MEDS: Insulin LISPRO 300 UNITS/3 ML VIAL SQ SCH ×2 (07:19→11:39)
[2017-10-01] MEDS: Azithromycin 250 MG TABLET PO SCH (07:19)
[2017-10-01] MEDS: Loratadine 10 MG TABLET PO SCH (07:19)
[2017-10-01] MEDS: Fluticasone Propionate Nasal 50 MCG/SPRAY BOTTLE NS SCH (07:20)
--- NOTE | 2017-10-01 07:31 | Anesthesia Evaluation PreOp ---
Date of Encounter: 10/01/17 Time of Encounter: 07:29 - Past History Planned Operation: EGD Cardiac History: HTN Pulmonary History: Former smoker, COPD Other Medical History: Renal, Diabetes Type II : No Alcohol Use: none Drug use: none Medications and Allergies Fluticasone Propionate Nasal [Flonase] 2 spr NS DAILY 09/27/17 [History] Levothyroxine [Synthroid] 100 mcg PO DAILY 09/27/17 [History] Metformin HCl [Metformin HCl ER] 1,000 mg PO BID 09/27/17 [History] Simvastatin [Zocor] 40 mg PO HS 09/27/17 [History] Tramadol HCl [Ultram] 50 mg PO BID PRN 09/27/17 [History] clonazePAM [Klonopin] 1 mg PO TID 09/27/17 [History] glipiZIDE [Glucotrol] 5 mg PO DAILY 09/27/17 [History] 3 Allergy/AdvReac Type Severity Reaction Status Date / Time aspirin [ASA] Allergy Rash Verified 09/27/17 10:47 codeine Allergy Rash Verified 09/27/17 10:47 - Meds/Allergy Pre-op Review Medications Reviewed: Yes Allergies Reviewed: Yes Beta Blockers on Current Med List: No Anesthesia Results - Labs 09/29/17 05:29 10/01/17 05:40 Echocardiogram Name: Margarette Mckeon Date of Study: 09/27/2017 Impressions: LVEF 60-65%. Normal LV chamber size, wall thickness and function. Pseudonormal left ventricular diastolic dysfunction. Normal right ventricular structure and function. Mild aortic stenosis. Mean gradient 14 mmHg. No evidence of pulmonary hypertension. Left Ventricular Wall Motion: Rest Echo Findings All wall segments showed normal motion. Findings: Study Quality * Technically adequate exam. ECG Findings Anesthesia Exam Vital Signs/O2 Sat/Glucose, Most Current Temp Pulse Resp BP Pulse Ox 10/01/17 06:59 97.6 F 15 16 130/71 96 10/01/17 05:02 97.5 F L 74 16 122/73 99 10/01/17 04:09 14 96 NPO (# of Hours): > 8 hrs Pain Scale: 0 Pain Scale Used: Numeric (1 - 10)
[2017-10-01] MEDS ORDERED: Furosemide 40 MG/4 ML VIAL IVP STA (11:08)
--- NOTE | 2017-10-01 12:41 | Discharge Summary ---
- NOTES TO OUTPATIENT PROVIDER Notes to Outpatient Provider: Follow up with new PCP in 2-3 days after discharge. Recheck BMP at that time (blood glucose and renal function). Date of Encounter: 10/01/17 Time of Encounter: 10:47 - Discharge Diagnosis (1) COPD exacerbation Priority: Primary Status: Acute (2) Hypoxia Priority: Secondary Status: Acute (3) Acute kidney injury Priority: Secondary Status: Acute (4) Hyponatremia Priority: Secondary Status: Acute (5) Diabetes mellitus Priority: Secondary Status: Chronic Qualifiers: Diabetes mellitus type: type 2 Diabetes mellitus jail insulin use: without skeiner use Diabetes mellitus complication status: without complication Qualified Code(s): E11.9 - Type 2 diabetes mellitus without complications (6) DVT prophylaxis Priority: Secondary Status: Acute Hospital course: Ms. Mckeon is a 72 year old white female admitted for COPD exacerbation. She was admitted to general medical floor. She was started on solumedrol, azithromycin, nebs, and supplemental O2. Respiratory status slowly improved throughout admission. Steroid dose was slowly reduced. She was qualified for home O2 due to difficultly weaning. She completed 5 days of azithromycin. She will be discharged home with a prednisone taper. She developed mild TURNER, and she was given IVF. TURNRE resolved today. She had minor BLE edema today, so was given IV lasix 40 once prior to discharge. She had mild hyponatremia that resolved on the day of discharge. She will follow up with new PCP 2-3 days after discharge. Repeat BMP can be obtained at that time. Blood glucose needs to be monitored closely as she had hyperglycemia with steroids. Patient has met maximum benefit of this hospitalization and will be discharged home in stable condition. Discharge discussed with: patient, nurse, other (Pharmacist) - Time Spent with Patient Total time spent providing and/or coordinating discharge services: Greater than 30 minutes - Discharge Medications Prescriptions: predniSONE [PredniSONE] See Taper PO BIDWM 12 Days #28 tablet Home Medications: Fluticasone Propionate Nasal [Flonase] 2 spr NS DAILY 09/27/17 [History] Levothyroxine [Synthroid] 100 mcg PO DAILY 09/27/17 [History] Metformin HCl [Metformin HCl ER] 1,000 mg PO BID 09/27/17 [History] Simvastatin [Zocor] 40 mg PO HS 09/27/17 [History] Tramadol HCl [Ultram] 50 mg PO BID PRN 09/27/17 [History] clonazePAM [Klonopin] 1 mg PO TID 09/27/17 [History] glipiZIDE [Glucotrol] 5 mg PO DAILY 09/27/17 [History] predniSONE [PredniSONE] See Taper PO BIDWM 12 Days #28 tablet 10/01/17 [Rx] Allergies/Adverse Reactions: 3 Allergy/AdvReac Type Severity Reaction Status Date / Time aspirin [ASA] Allergy Rash Verified 09/27/17 10:47 codeine Allergy Rash Verified 09/27/17 10:47 Date of admission: 09/29/17 19:11 Primary care physician: Guero Fulton MD Discharging clinician: Kai Moffett Anticipated date of discharge: 10/01/17 - Constitutional Vitals: Temp Pulse Resp BP Pulse Ox 97.6 F 15 16 130/71 98 10/01/17 06:59 10/01/17 06:59 10/01/17 11:00 10/01/17 11:00 10/01/17 11:00 General appearance: Present: cooperative, A&O X 3, pleasant, no acute distress, answers questions appropriately - Respiratory Respiratory exam: Present: CTAB. Absent: accessory muscle use, rales, rhonchi, wheezes Additional comments: Normal WOB - Cardiovascular Cardiovascular exam: Present: RRR, +S1, +S2. Absent: diastolic murmur, gallop, rubs, systolic murmur Additional comments: Trace BLE edema - GI/Abdominal GI/Abdominal exam: Present: normal bowel sounds, soft. Absent: distended, hepatomegaly, mass, splenomegaly, tenderness - Psychiatric Psychiatric exam: Present: normal affect, normal mood. Absent: agitated, anxious, depressed - Skin Skin exam: Present: dry, intact, warm. Absent: cyanosis, rash - Patient Status Disposition: Home, Self-Care Condition: Good Overall status at discharge: patient is progressing back to baseline - Discharge Instructions Follow Up With: Guero Fulton MD [Primary Care Provider] - 10/11/17 9:45 am Additional Instructions: Follow up with new PCP in 2-3 days after discharge. Recheck BMP at that time ( blood glucose and renal function). - Diet and Activity Activity: resume usual activities as tolerated Diet: diabetic diet, low fat, low cholesterol, low salt diet, other (Cardiac Diet)
[2017-10-01 13:32] VITALS: BP 130/64
== END 2017-10-01 16:12 | disposition home or self-care (01) | DRG 190 ==
LOC: EMEROO 10:00 → 2ANU 10:00
PROVIDERS: ADMIT Family Medicine; ATTEND Pediatrics

== ENCOUNTER 2021-08-03 21:43 | Inpatient (IN) ==
[2021-08-03 23:07] LABS: Hematocrit 18.7 % (35.3-44.9); Mean Corpuscular HGB Conc 28.3 g/dL (31.6-35.5); Mean Corpuscular Hemoglobin 26.5 pg (28.0-33.3); Mean Corpuscular Volume 93.5 fL (83.0-100.0); Mean Platelet Volume 11.1 fL (9.4-12.4); Monocytes # 0.1 K/mcL (0.0-1.3); Platelet Count 149 K/mcL (140-400); Red Cell Distribution Width 20.5 % (11.5-14.5); White Blood Count 1.2 K/mcL (4.3-11.1)
[2021-08-03 23:14] LABS: VBG HCO3 30 mEq/L (21-27); VBG PCO2 61 mmHg (41-51); VBG PH 7.29 pH Units (7.32-7.42); VBG PO2 45 mmHg (25-50)
[2021-08-03 23:27] LABS: Hemoglobin 5.3 g/dL (11.5-15.4)
[2021-08-03 23:30] LABS: Anisocytosis 1+ (Not Present); Hypochromasia Present (Not Present); Lymphocytes # 0.6 K/mcL (0.6-4.6); Microcytosis Present (Not Present); Neutrophils # 0.4 K/mcL (1.6-8.9); Polychromasia 1+ (Not Present)
[2021-08-03 23:31] LABS: Large Platelets Present (Not Present); Platelet Estimate Normal (Normal)
[2021-08-03 23:40] LABS: Alanine Aminotransferase 37 Units/L (7-52); Albumin/Globulin Ratio 0.7 (1.1-2.2); Alkaline Phosphatase 72 Units/L (34-104); Aspartate Amino Transferase 40 Units/L (13-39); BUN/Creatinine Ratio 26 (6-26); Bilirubin,Total 0.4 mg/dL (0.3-1.0); Blood Urea Nitrogen 30 mg/dL (8-23); Calcium 9.2 mg/dL (8.6-10.3); Carbon Dioxide 26 mEq/L (23-29); Chloride 101 mEq/L (98-107); Globulin 4.4 g/dL (2.4-3.5); Glucose 191 mg/dL (70-105); Magnesium 1.6 mg/dL (1.6-2.6); Osmolality,Calculated 297 (280-300); Potassium 4.4 mEq/L (3.5-5.1); Sodium 138 mEq/L (136-145); Total Protein 7.4 g/dL (6.4-8.9); Troponin I < 0.03 ng/mL (< 0.04); eGFR For African Americans 56 (> 60); eGFR For Non-African Americans 46 (> 60)
[2021-08-04] MEDS ORDERED: Piperacillin/Tazobactam 3.375 GM in 0.9 % Sodium Chloride Mini Bag 100 ML IVPB ONE (00:07)
[2021-08-04] MEDS ORDERED: Albuterol 2.5 MG/3 ML NEBULIZER IH ONE (00:29)
[2021-08-04] MEDS ORDERED: Isovue-370 500 ML BOTTLE IVP ONE (00:30)
[2021-08-04 00:38] LABS: Adenovirus Not Detected (Not Detect); Bordetella Pertussis Not Detected (Not Detect); Chlamydophila pneumoniae Not Detected (Not Detect); Coronavirus 229E Not Detected (Not Detect); Coronavirus HKU1 Not Detected (Not Detect); Coronavirus NL63 Not Detected (Not Detect); Coronavirus OC43 Not Detected (Not Detect); Human Metapneumovirus Not Detected (Not Detect); Human Rhinovirus/Enterovirus Not Detected (Not Detect); Influenza A Subtype 2009 H1 Not Detected (Not Detect); Influenza B Not Detected (Not Detect); Mycoplasma pneumoniae Not Detected (Not Detect); Parainfluenza Virus 1 Not Detected (Not Detect); Parainfluenza Virus 2 Not Detected (Not Detect); Parainfluenza Virus 3 Not Detected (Not Detect); Parainfluenza Virus 4 Not Detected (Not Detect); Respiratory Syncytial Virus Not Detected (Not Detect); SARS-CoV-2 Not Detected (Not Detect)
[2021-08-04] MEDS ORDERED: Vancomycin 1,750 MG/517.5 ML IV.SOLN IVPB ONE (01:00)
[2021-08-04] MEDS ORDERED: Acetaminophen 325 MG TABLET PO PRN (03:01)
[2021-08-04] MEDS ORDERED: MOM Conc 10 ML UD.LIQ PO PRN (03:01)
[2021-08-04] MEDS ORDERED: Naloxone 0.4 MG/ML INJ IVP PRN (03:01)
[2021-08-04] MEDS ORDERED: Melatonin 3 MG TABLET PO PRN (03:01)
[2021-08-04] MEDS ORDERED: 0.9 % Sodium Chloride 1,000 ML IVC ONE (03:13)
[2021-08-04] MEDS ORDERED: *HR* Dextrose 50 % in Water (Syg) 50 ML SYRINGE IVP PRN (04:05)
[2021-08-04] MEDS ORDERED: D5% in Water 1,000 ML IVC PRN (04:05)
[2021-08-04] MEDS ORDERED: Dextrose Gel 15 GM/37.5 ML TUBE PO PRN ×2 (04:05)
[2021-08-04] MEDS: Pantoprazole 40 MG VIAL IVP SCH ×2 (04:36→17:29)
[2021-08-04] MEDS: Insulin LISPRO 300 UNITS/3 ML VIAL SUBQ SCH ×3 (04:41→17:29)
[2021-08-04 06:02] LABS: Hematocrit 22.4 % (35.3-44.9); Hemoglobin 6.4 g/dL (11.5-15.4); Mean Corpuscular HGB Conc 28.6 g/dL (31.6-35.5); Mean Corpuscular Hemoglobin 26.7 pg (28.0-33.3); Mean Corpuscular Volume 93.3 fL (83.0-100.0); Mean Platelet Volume 11.5 fL (9.4-12.4); Monocytes # 0.1 K/mcL (0.0-1.3); Platelet Count 128 K/mcL (140-400); Red Cell Distribution Width 19.1 % (11.5-14.5); White Blood Count 1.2 K/mcL (4.3-11.1)
[2021-08-04 06:09] LABS: INR 1.3; Prothrombin Time 14.9 Seconds (9.4-12.1)
[2021-08-04 06:18] LABS: Calcium 9.1 mg/dL (8.6-10.3); Potassium 4.7 mEq/L (3.5-5.1)
[2021-08-04 06:27] LABS: Thyroid Stimulating Hormone 1.421 mcIU/mL (0.340-5.600)
[2021-08-04 06:32] LABS: Large Platelets Present (Not Present); Neutrophils # 0.2 K/mcL (1.6-8.9)
[2021-08-04 06:33] LABS: Anisocytosis 1+ (Not Present); Hypochromasia Present (Not Present); Platelet Estimate Decreased (Normal)
[2021-08-04] MEDS ORDERED: Ipratropium/Albuterol Neb 3 ML ONE (07:34)
[2021-08-04] MEDS: Ipratropium/Albuterol Neb 3 ML IH SCH ×3 (07:36→20:07)
[2021-08-04] MEDS: Ondansetron ODT 4 MG TAB.RAPDIS SL PRN ×2 (09:09→14:19)
[2021-08-04] MEDS: Piperacillin/Tazobactam 3.375 GM in 0.9 % Sodium Chloride Mini Bag 100 ML IVPB SCH ×2 (09:10→15:15)
[2021-08-04] MEDS ORDERED: Ondansetron 4 MG/2 ML VIAL IVP PRN (09:12)
[2021-08-04 09:15] LABS: Bilirubin,Urine Negative (Negative); Blood,Urine Negative (Negative); Clarity,Urine Clear (Clear); Color,Urine Light-Yellow (Yellow); Glucose,Urine (UA) Normal (Normal); Ketones,Urine Negative (Negative); Leukocyte Esterase,Urine Negative (Negative); Nitrite,Urine Negative (Negative); Protein,Urine 50 mg/dL (Neg-Trace); RBC,Urine 0-3 per hpf (0-3); Specific Gravity,Urine > 1.030 (1.010-1.025); Squamous Epithelial Cell,Urine Few per hpf (None-Few); Urobilinogen,Urine Normal (Normal); WBC,Urine 0-3 per hpf (0-3)
[2021-08-04 09:24] LABS: ABG Base Excess 1 mEq/L (-2 to 3); ABG HCO3 26 mEq/L (21-27); ABG Oxygen Saturation 90 % (95-98); ABG PCO2 43 mmHg (35-45); ABG PH 7.39 pH Units (7.32-7.45); ABG PO2 59 mmHg (85-104); ABG TCO2 27 mEq/L (20-26)
[2021-08-04 12:14] LABS: Hemoglobin 7.2 g/dL (11.5-15.4)
[2021-08-04 12:16] LABS: Hematocrit 23.3 % (35.3-44.9)
[2021-08-04 14:52] LABS: Immature Reticulocyte % 30.5 % (11.0-38.0); Retculocyte # 0.07 M/mcL (0.05-0.10); Reticulocyte % 2.7 % (1.6-2.8)
[2021-08-04 17:23] LABS: Folate 13.7 ng/mL (3.0-16.0)
[2021-08-05] MEDS: Vancomycin 1,250 MG/262.5 ML IV.SOLN IVPB SCH (00:13)
[2021-08-05] MEDS: Piperacillin/Tazobactam 3.375 GM in 0.9 % Sodium Chloride Mini Bag 100 ML IVPB SCH ×3 (00:14→17:03)
[2021-08-05] MEDS: Insulin LISPRO 300 UNITS/3 ML VIAL SUBQ SCH ×4 (00:15→17:12)
[2021-08-05 00:53] LABS: A.calcoaceticus-baumannii cplx Not Detected (Not Detect); Bacteroides fragilis by PCR Not Detected (Not Detect); Candida albicans by PCR Not Detected (Not Detect); Candida auris by PCR Not Detected (Not Detect); Candida glabrata by PCR Not Detected (Not Detect); Candida krusei by PCR Not Detected (Not Detect); Candida parapsilosis by PCR Not Detected (Not Detect); Candida tropicalis by PCR Not Detected (Not Detect); Crypto. neoformans/gattii PCR Not Detected (Not Detect); Enterobacter cloacae Cmplx PCR Not Detected (Not Detect); Enterobacterales by PCR Not Detected (Not Detect); Enterococcus faecalis by PCR Not Detected (Not Detect); Enterococcus faecium by PCR Not Detected (Not Detect); Escherichia coli by PCR Not Detected (Not Detect); Klebs. pneumoniae group by PCR Not Detected (Not Detect); Klebsiella aerogenes by PCR Not Detected (Not Detect); Klebsiella oxytoca by PCR Not Detected (Not Detect); Proteus by PCR Not Detected (Not Detect); Pseudomonas aeruginosa by PCR Not Detected (Not Detect); Salmonella species by PCR Not Detected (Not Detect); Serratia marcescens by PCR Not Detected (Not Detect); Staph epidermidis by PCR Not Detected (Not Detect); Staph lugdunensis by PCR Not Detected (Not Detect); Staphylococcus aureus by PCR Not Detected (Not Detect); Staphylococcus by PCR DETECTED (Not Detect); Stenotrophomonas maltophilia Not Detected (Not Detect); Streptococcus agalactiae(B)PCR Not Detected (Not Detect); Streptococcus by PCR Not Detected (Not Detect); Streptococcus pneumoniae PCR Not Detected (Not Detect); Streptococcus pyogenes (A) PCR Not Detected (Not Detect)
[2021-08-05] MEDS: Ipratropium/Albuterol Neb 3 ML IH SCH ×4 (04:11→20:59)
[2021-08-05 04:19] LABS: Eosinophils % 2.1 %; Hematocrit 23.7 % (35.3-44.9); Immature Platelets 6.6 % (1.1-6.1); Lymphocytes # 0.7 K/mcL (0.6-4.6); Mean Corpuscular HGB Conc 29.5 g/dL (31.6-35.5); Mean Corpuscular Hemoglobin 27.3 pg (28.0-33.3); Mean Corpuscular Volume 92.6 fL (83.0-100.0); Mean Platelet Volume 10.8 fL (9.4-12.4); Monocytes # 0.1 K/mcL (0.0-1.3); Monocytes % 6.2 %; Neutrophils # 0.2 K/mcL (1.6-8.9); Platelet Count 117 K/mcL (140-400); Red Blood Count 2.56 M/mcL (3.82-4.97); Red Cell Distribution Width 18.8 % (11.5-14.5); Segmented Neutrophils % 22.7 %
[2021-08-05 04:35] LABS: Calcium 8.8 mg/dL (8.6-10.3); Magnesium 1.6 mg/dL (1.6-2.6); Phosphorous 3.5 mg/dL (2.7-4.5); Potassium 4.3 mEq/L (3.5-5.1)
[2021-08-05 05:24] LABS: Hypochromasia Present (Not Present); Platelet Estimate Decreased (Normal)
[2021-08-05] MEDS: Pantoprazole 40 MG VIAL IVP SCH ×2 (06:36→17:03)
[2021-08-05 10:34] LABS: Hematocrit 24.4 % (35.3-44.9); Hemoglobin 7.3 g/dL (11.5-15.4)
[2021-08-05 13:28] LABS: Amorphous Sediment,Urine Few per hpf (None-Few); Bacteria,Urine Few per hpf (None-Few); Bilirubin,Urine Negative (Negative); Blood,Urine Trace (Negative); Clarity,Urine Clear (Clear); Color,Urine Light-Yellow (Yellow); Glucose,Urine (UA) Normal (Normal); Ketones,Urine Negative (Negative); Leukocyte Esterase,Urine Negative (Negative); Mucus,Urine Few per lpf (None-Few); Nitrite,Urine Negative (Negative); Protein,Urine 70 mg/dL (Neg-Trace); RBC,Urine 0-3 per hpf (0-3); Specific Gravity,Urine 1.029 (1.010-1.025); Squamous Epithelial Cell,Urine Few per hpf (None-Few); Urobilinogen,Urine Normal (Normal)
[2021-08-05 17:44] LABS: Hemoglobin 6.8 g/dL (11.5-15.4)
[2021-08-05] MEDS ORDERED: 0.9 % Sodium Chloride 250 ML ONE (20:03)
[2021-08-06] MEDS: Piperacillin/Tazobactam 3.375 GM in 0.9 % Sodium Chloride Mini Bag 100 ML IVPB SCH ×3 (00:33→14:25)
[2021-08-06] MEDS: Vancomycin 1,250 MG/262.5 ML IV.SOLN IVPB SCH (01:39)
[2021-08-06] MEDS: Insulin LISPRO 300 UNITS/3 ML VIAL SUBQ SCH ×5 (02:00→20:25)
[2021-08-06 02:16] LABS: Hemoglobin 7.7 g/dL (11.5-15.4)
[2021-08-06 02:18] LABS: Hematocrit 25.6 % (35.3-44.9)
[2021-08-06] MEDS: Ipratropium/Albuterol Neb 3 ML IH SCH ×4 (03:45→20:31)
[2021-08-06] MEDS ORDERED: *HR* LORazepam 2 MG/ML VIAL IVP ONE (04:13)
[2021-08-06] MEDS: Pantoprazole 40 MG VIAL IVP SCH (04:31)
[2021-08-06] MEDS ORDERED: *HR* FentaNYL (PF) 100 MCG/2 ML VIAL IVP ONE (09:49)
[2021-08-06] MEDS ORDERED: *HR* Midazolam HCl 2 MG/2 ML VIAL IVP ONE (09:49)
[2021-08-06] MEDS ORDERED: 0.9 % Sodium Chloride 500 ML ONE (09:53)
[2021-08-06 10:48] LABS: Lymphocytes # 0.5 K/mcL (0.6-4.6); Mean Corpuscular HGB Conc 30.7 g/dL (31.6-35.5); Mean Corpuscular Hemoglobin 28.3 pg (28.0-33.3); Mean Corpuscular Volume 92.3 fL (83.0-100.0); Mean Platelet Volume 12.6 fL (9.4-12.4); Nucleated Red Blood Cells 2.6 /100 WBC (0); Platelet Count 115 K/mcL (140-400); Red Blood Count 2.72 M/mcL (3.82-4.97); Red Cell Distribution Width 17.5 % (11.5-14.5)
[2021-08-06 10:50] LABS: White Blood Count 0.8 K/mcL (4.3-11.1)
[2021-08-06 11:11] LABS: Neutrophils # 0.3 K/mcL (1.6-8.9)
[2021-08-06] MEDS ORDERED: amLODIPine 5 MG TABLET PO SCH (13:45)
[2021-08-06] MEDS ORDERED: Furosemide 40 MG/4 ML VIAL IVP ONE (14:00)
[2021-08-06] MEDS: levoFLOXacin 750 MG TABLET PO SCH (17:52)
[2021-08-06 19:23] LABS: Hematocrit 29.7 % (35.3-44.9); Hemoglobin 8.7 g/dL (11.5-15.4)
[2021-08-06] MEDS: clonazePAM 1 MG TABLET PO PRN (20:24)
[2021-08-06 20:28] LABS: Estimated Average Glucose 146 mg/dl; Hemoglobin A1C 6.7 %
[2021-08-07] MEDS: traZODone 50 MG TABLET PO PRN ×2 (01:17→19:59)
[2021-08-07 02:48] LABS: Hemoglobin 7.8 g/dL (11.5-15.4)
[2021-08-07 02:50] LABS: Hematocrit 25.9 % (35.3-44.9); Immature Platelets 8.1 % (1.1-6.1); Mean Corpuscular HGB Conc 30.1 g/dL (31.6-35.5); Mean Corpuscular Hemoglobin 28.1 pg (28.0-33.3); Mean Corpuscular Volume 93.2 fL (83.0-100.0); Mean Platelet Volume 11.8 fL (9.4-12.4); Nucleated Red Blood Cells 2.7 /100 WBC (0); Platelet Count 102 K/mcL (140-400); Red Blood Count 2.78 M/mcL (3.82-4.97); Red Cell Distribution Width 17.3 % (11.5-14.5)
[2021-08-07 02:57] LABS: White Blood Count 0.7 K/mcL (4.3-11.1)
[2021-08-07 03:37] LABS: Anisocytosis 1+ (Not Present); Large Platelets Present (Not Present); Platelet Estimate Slight Decrease (Normal)
[2021-08-07] MEDS: Piperacillin/Tazobactam 3.375 GM in 0.9 % Sodium Chloride Mini Bag 100 ML IVPB SCH ×3 (03:39→20:00)
[2021-08-07] MEDS: Vancomycin 1,250 MG/262.5 ML IV.SOLN IVPB SCH (03:40)
[2021-08-07 03:43] LABS: Eosinophils % 2.7 %; Lymphocytes # 0.4 K/mcL (0.6-4.6); Lymphocytes % 58.1 %; Monocytes % 5.4 %; Neutrophils # 0.2 K/mcL (1.6-8.9); Segmented Neutrophils % 33.8 %
[2021-08-07] MEDS: Ipratropium/Albuterol Neb 3 ML IH SCH ×4 (04:20→20:22)
[2021-08-07] MEDS ORDERED: Perflutren Lipid Microsphere 1.3 ML in 0.9 % Sodium Chloride 8.7 ML IVP PRN (07:56)
[2021-08-07] MEDS: Insulin LISPRO 300 UNITS/3 ML VIAL SUBQ SCH ×4 (08:24→19:52)
[2021-08-07] MEDS: levoFLOXacin 750 MG TABLET PO SCH (08:25)
[2021-08-07] MEDS ORDERED: amLODIPine 5 MG TABLET PO SCH (09:00)
[2021-08-07] MEDS: clonazePAM 1 MG TABLET PO PRN ×2 (10:28→19:59)
[2021-08-07 13:11] LABS: Kappa Qnt Free Light Chains 82.22 mg/L (3.30-19.40); Lambda Qnt Free Light Chains 76.55 mg/L (5.71-26.30)
[2021-08-07] MEDS ORDERED: SODIUM CHLORIDE/NAHCO3/KCL/PEG 4,000 ML SOLN.RECON PO ONE (17:00)
[2021-08-07 20:13] LABS: Hepatitis B Surface Antigen Nonreactive (Nonreactive)
[2021-08-07 20:41] LABS: Hepatitis C Virus Antibody Nonreactive (Nonreactive)
[2021-08-07 20:42] LABS: HIV-1&2 Antibody & p24 Ag Nonreactive (Nonreactive)
[2021-08-08 01:44] LABS: BUN/Creatinine Ratio 15 (6-26); Blood Urea Nitrogen 19 mg/dL (8-23); eGFR For African Americans 48 (> 60); eGFR For Non-African Americans 40 (> 60)
[2021-08-08 02:12] LABS: Hemoglobin 7.5 g/dL (11.5-15.4)
[2021-08-08 02:14] LABS: Eosinophils % 1.5 %; Hematocrit 24.7 % (35.3-44.9); Immature Granulocytes % 1.5 % (0-4); Immature Platelets 7.8 % (1.1-6.1); Lymphocytes # 0.4 K/mcL (0.6-4.6); Lymphocytes % 61.8 %; Mean Corpuscular HGB Conc 30.4 g/dL (31.6-35.5); Mean Corpuscular Hemoglobin 27.9 pg (28.0-33.3); Mean Corpuscular Volume 91.8 fL (83.0-100.0); Mean Platelet Volume 11.8 fL (9.4-12.4); Monocytes # 0.1 K/mcL (0.0-1.3); Monocytes % 7.4 %; Neutrophils # 0.2 K/mcL (1.6-8.9); Red Blood Count 2.69 M/mcL (3.82-4.97); Red Cell Distribution Width 17.2 % (11.5-14.5); Segmented Neutrophils % 27.8 %
[2021-08-08 02:28] LABS: Platelet Count 98 K/mcL (140-400)
[2021-08-08 02:30] LABS: White Blood Count 0.7 K/mcL (4.3-11.1)
[2021-08-08 03:47] LABS: Platelet Estimate Decreased (Normal)
[2021-08-08 03:48] LABS: Reactive Lymphocytes Present (Not Present)
[2021-08-08 03:54] LABS: Hepatitis A Antibody IgM Nonreactive (Nonreactive)
[2021-08-08] MEDS: Ipratropium/Albuterol Neb 3 ML IH SCH ×3 (04:16→16:10)
[2021-08-08] MEDS: Piperacillin/Tazobactam 3.375 GM in 0.9 % Sodium Chloride Mini Bag 100 ML IVPB SCH ×2 (04:50→13:00)
[2021-08-08] MEDS: Insulin LISPRO 300 UNITS/3 ML VIAL SUBQ SCH ×2 (07:21→13:00)
[2021-08-08] MEDS ORDERED: Morphine Sulfate Oral CONC 10 MG/0.5 ML ORAL.SYG SL PRN (10:57)
[2021-08-08 11:07] VITALS: BP 130/64; PULSE 92; TEMP 97.7; O2SAT 92
[2021-08-09] MEDS ORDERED: levoFLOXacin 750 MG TABLET PO SCH (09:00)
== END 2021-08-08 16:33 | disposition hospice, home (50) | DRG 871 ==
LOC: 3BNU 21:43 → EMEROOARM 21:43 → 3BNU 08-04 03:54 → SUATTDRO 08-04 04:46
PROVIDERS: ADMIT Internal Medicine; ATTEND Registered Nurse